=== PATIENT | male | born 1965 | race Caucasian/White ===

== ENCOUNTER 2016-09-24 12:31 | Inpatient (IN) | payer OTHER ==
[~2016-09-24] VITALS: Ht 177.8 cm; Wt 91.2 kg
--- NOTE | 2016-09-24 13:13 | DIAGNOSTIC IMAGING REPORT ---
PROCEDURE: XR CHEST 1 VIEW INDICATION: SHORTNESS OF BREATH, initial encounter TECHNIQUE: Portable AP view 01:04 p.m. COMPARISON: Chest x-ray 02/19/2016 FINDINGS: Diffuse left lung infiltrate. Heart and mediastinum are normal. Thorax is normal. IMPRESSION: 1. Large left-sided pneumonia
--- NOTE | 2016-09-24 13:54 | ED ORDER SUMMARY ---
..... 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 (Continuous) (12:56 09/24/2016 PHakchinson DO) (13:00 KWilliams R.N.) UA-Culture if indicated Urgent (12:09/24/2016 PHakchinson DO) (Ack 13:06 LTapper) (13:32 KWilliams R.N.) Cardiac Panel Stat (12:09/24/2016 PHakchinson DO) (13:00 KWilliams R.N.) BNP Urgent (12:09/24/2016 PHakchinson DO) (13:00 KWilliams R.N.) D-Dimer Urgent (12:57 09/24/2016 PHakchinson DO) (13:00 KWilliams R.N.) Amylase Urgent (12:09/24/2016 PHakchinson DO) (13:00 KWilliams R.N.) PT with INR Urgent (12:57 09/24/2016 PHutchinson DO) (13:00 KWilliams R.N.) TSH Urgent (12:09/24/2016 PHakchinson DO) (13:00 KWilliams R.N.) ESR Urgent (12:57 09/24/2016 PHakchinson DO) (13:00 KWilliams R.N.) Urine Drug Screen Urgent (12:57 [facility]24/2016 [facility] (Ack 13:06 LTapper) (13:32 KWilliams R.N.) Oxygen (2 L/min) (NC) (12:57 09/24/2016 PHakchinson DO) (13:03 KWilliams R.N.) (13:06 DMaziarka R.N.) Pulse oximeter (12:57 09/24/2016 [facility]) (13:00 KWilliams R.N.) EKG - ER Stat (12:57 09/24/2016 [facility]) (13:00 KWilliams R.N.) Vitals (12:57 09/24/2016 [facility] DO) (13:00 KWilliams R.N.) POC Glucose (12:57 09/24/2016 [facility] ) (13:00 KWilliams R.N.) Lactate, Serum Urgent (12:58 09/24/2016 [facility]) (Ack 13:06 LTapper) (13:15 SRoberts R.N.) PCT (Procalcitonin) Urgent (12:58 09/24/2016 [facility] ) (13:01 KWilliams R.N.) Blood Culture (No) (N/A) Urgent (12:59 09/24/2016 [facility]) (Ack 13:06 LTapper) (13:15 SRoberts R.N.) Rapid Influenza Screen (Nasal Pharyngeal) (HR ASSISTANT swab) Urgent (13:00 09/24/2016 [facility]) (Ack 13:06 LTapper) (13:15 SRoberts R.N.) ABG (G) Urgent (13:53 09/24/2016 [facility] ) (Ack 14:01 LTapper) (14:14 KWilliams R.N.) RT Evaluation Stat (13:53 09/24/2016 [facility] ) (Ack 14:01 LTapper) (14:13 KWilliams R.N.) Singh Catheter (14:19 09/24/2016 [facility]) (14:59 SRoberts R.N.) CTA Thorax w Cont (No) (BUN and Cr normal) (high d-dimer; high Aa gradient; pneumonia; hypoxia) Urgent (14:38 09/24/2016 [facility]) (Ack 14:42 LTapper) (14:59 SRoberts R.N.) MEDICATION ORDERS: Albuterol Neb Tx 1 unit dose (NOW, HHN) (13:53 09/24/2016 [facility]) (14:14 Lc R.N.) Lovenox Subcut 40 mg (NOW) (14:40 09/24/2016 [facility]) (Ack 15:00 Maria Luisats R.N.) (15:20 SRoberts R.N.) Acetaminophen PO 1,000 mg (NOW) (15:33 09/24/2016 [facility]) (15:37 SRoberts R.N.) IV FLUIDS: IV NS : initial bolus 1000 mL (1000 mL/hr), then 500 mL/hr for X2 (NOW) (12:56 09/24/2016 [facility]) (13:05 Kimberly R.N.) Azithromycin IV 500 mg/250 mL (NOW) (13:02 09/24/2016 [facility]) (14:11 Halimaams R.N.) Ceftriaxone IV 2 gm/50mL (NOW) (13:03 09/24/2016 [facility]) (13:29 Halimaams R.N.) ORDER SHEET NOTES: [Electronically signed by Camryn Gomez R.N. (15:41 09/24/2016)] [Electronically signed by Dayton Dickey DO (16:04 09/24/2016)] [Electronically locked/signed by Camryn Gomez R.N. (15:41 09/24/2016)]
--- NOTE | 2016-09-24 13:54 | ED ORDER SUMMARY ---
..... 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) (12:56 09/24/2016 PHdechinson DO) (13:00 KWilliams R.N.) UA-Culture if indicated Urgent (12:09/24/2016 PHdechinson DO) (Ack 13:06 LTapper) (13:32 KWilliams R.N.) Cardiac Panel Stat (12:09/24/2016 PHdechinson DO) (13:00 KWilliams R.N.) BNP Urgent (12:09/24/2016 PHdechinson DO) (13:00 KWilliams R.N.) D-Dimer Urgent (12:57 09/24/2016 PHdechinson DO) (13:00 KWilliams R.N.) Amylase Urgent (12:09/24/2016 PHdechinson DO) (13:00 KWilliams R.N.) PT with INR Urgent (12:57 09/24/2016 PHutchinson DO) (13:00 KWilliams R.N.) TSH Urgent (12:09/24/2016 PHdechinson DO) (13:00 KWilliams R.N.) ESR Urgent (12:57 09/24/2016 PHdechinson DO) (13:00 KWilliams R.N.) Urine Drug Screen Urgent (12:57 09/24/2016 [email or web address] DO) (Ack 13:06 LTapper) (13:32 KWilliams R.N.) Oxygen (2 L/min) (NC) (12:57 09/24/2016 PHdechinson DO) (13:03 KWilliams R.N.) (13:06 DMaziarka R.N.) Pulse oximeter (12:57 09/24/2016 [facility]) (13:00 KWilliams R.N.) EKG - ER Stat (12:57 09/24/2016 [facility]) (13:00 KWilliams R.N.) Vitals (12:57 09/24/2016 [facility] DO) (13:00 KWilliams R.N.) POC Glucose (12:57 09/24/2016 [facility] ) (13:00 KWilliams R.N.) Lactate, Serum Urgent (12:58 09/24/2016 [facility]) (Ack 13:06 LTapper) (13:15 SRoberts R.N.) PCT (Procalcitonin) Urgent (12:58 09/24/2016 [facility] ) (13:01 KWilliams R.N.) Blood Culture (No) (N/A) Urgent (12:59 09/24/2016 [facility]) (Ack 13:06 LTapper) (13:15 SRoberts R.N.) Rapid Influenza Screen (Nasal Pharyngeal) (MAIL PROCESSING MACHINE OPERATOR swab) Urgent (13:00 09/24/2016 [facility]) (Ack 13:06 LTapper) (13:15 SRoberts R.N.) ABG (G) Urgent (13:53 09/24/2016 [facility] ) (Ack 14:01 LTapper) (14:14 KWilliams R.N.) RT Evaluation Stat (13:53 09/24/2016 [facility] ) (Ack 14:01 LTapper) (14:13 KWilliams R.N.) Singh Catheter (14:19 09/24/2016 [facility]) (14:59 SRoberts R.N.) CTA Thorax w Cont (No) (BUN and Cr normal) (high d-dimer; high Aa gradient; pneumonia; hypoxia) Urgent (14:38 09/24/2016 [facility]) (Ack 14:42 LTapper) (14:59 SRoberts R.N.) MEDICATION ORDERS: Albuterol Neb Tx 1 unit dose (NOW, HHN) (13:53 09/24/2016 [facility]) (14:14 Lc R.N.) Lovenox Subcut 40 mg (NOW) (14:40 09/24/2016 [facility]) (Ack 15:00 Maria Luisats R.N.) (15:20 SRoberts R.N.) Acetaminophen PO 1,000 mg (NOW) (15:33 09/24/2016 [facility]) (15:37 SRoberts R.N.) IV FLUIDS: IV NS : initial bolus 1000 mL (1000 mL/hr), then 500 mL/hr for X2 (NOW) (12:56 09/24/2016 [facility]) (13:05 Kimberly R.N.) Azithromycin IV 500 mg/250 mL (NOW) (13:02 09/24/2016 [facility]) (14:11 Halimaams R.N.) Ceftriaxone IV 2 gm/50mL (NOW) (13:03 09/24/2016 [facility]) (13:29 Halimaams R.N.) ORDER SHEET NOTES: [Electronically signed by Camryn Gomez R.N. (15:41 09/24/2016)] [Electronically signed by Dayton Dickey DO (16:04 09/24/2016)] [Electronically locked/signed by Camryn Gomez R.N. (15:41 09/24/2016)]
--- NOTE | 2016-09-24 13:54 | ED NURSING NOTES ---
Clinical Report - Nurses [facility] [address] [place] [address] 09/24/2016 12:33 Patient: MARCO A BECK TRIAGE Triage time 1245. Acuity: LEVEL 2. Chief Complaint: IMPAIRED SPEECH and ACTING DIFFERENTLY and DISORIENTED. Alert. No acute distress. SEPSIS SCREEN: Sepsis Screen. Infection suspected/documented. Temperature greater than 38.3 degrees C (101 degrees F), heart rate greater than 90 and respiratory rate greater than 20. Glucose not greater than 120 (with no history of diabetes). MYA COMA SCORE: [place] Coma Scale: 14- eyes open spontaneously (4); best verbal response- disoriented (4); best motor response- obeys commands (6). --12:57 Darren Ruiz R.N. 12:48 09/24/16. BP: 142/72. HR: 150. RR: 39. O2 saturation: 94% on room air. Temp: 103.3 F (oral). Pain level now 0/10. --12:57 Darren Ruiz R.N. Weight: 88.4 kg estimated. Height/Length: 70 inches Per Patient. BMI: 28. --12:49 Darren Ruiz R.N. Medications PredniSONE Oral. --12:55 Darren Ruiz R.N. Aspirin Oral (Tablet 81 mg) 1 tablet, daily. --12:55 Darren Ruiz R.N. Folic Acid Oral. --12:55 Darren Ruiz R.N. Methotrexate Oral 7.5 mg, weekly. --12:55 Darren Ruiz R.N. Actemra Subcutaneous. --12:56 Darren Ruiz R.N. Allergies No Known Drug Allergy. --12:55 Darren Ruiz R.N. History Primary physician (no pcp). ( Pt c/o feeling delirious. 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 at bedside states he was last at his baseline on .). This started last night. Patient was last known well (). Treatment YARD CONDUCTOR: None. SOCIAL HX: Heavy tobacco smoker (cigarette)- less than 1 pack per day. Alcohol use; consumes five beers a week. No drug use. FALL RISK ASSESSMENT: Fall risk assessment completed. No fall risk identified. NUTRITIONAL RISK ASSESSMENT: The nutritional risk assessment revealed no deficiencies. FUNCTIONAL ASSESSMENT: Functional assessment: no impairments noted. LEARNING NEEDS ASSESSMENT: The learning needs assessment revealed no barriers. SKIN INTEGRITY ASSESSMENT: Skin integrity risk assessment completed. No skin integrity risk identified. --12:57 Darren Ruiz R.N. SOCIAL HX: ( Code stroke was called at 1247 due to slurred speech and confusion, prior to obtaining temp and VS). --13:00 Darren Ruiz R.N. PROBLEMS: Rheumatoid Arthritis. --12:56 Darren Ruiz R.N. ADDITIONAL SURGERIES: no known surgeries. Interventions ID band on patient. To treatment room. --12:57 Darren Ruiz R.N. PHYSICAL ASSESSMENT 12:59 09/24/16. To room via wheelchair. Baseline functional status: usually alert, oriented x4 and cooperative. Motor response: usually steady gait GENERAL / NEURO / PSYCH: Appears in no acute distress. The patient is disoriented to situation. Slurred speech. No motor deficit. ( difficulty following commands.). HEENT: No facial asymmetry noted. RESPIRATORY: Respirations not labored. ( tachypnea). CVS: Cardiac rhythm: sinus tachycardia. Capillary refill less than 2 seconds. SKIN: Skin is intact, warm and dry. --12:59 Darren Ruiz R.N. NURSING PROGRESS NOTES The plan of care for this patient has been created. stave log cut off saw operator, pulse oximeter and NIBP monitor placed on patient. Patient gowned. Head of bed elevated. Call light placed in reach. Bed placed in lowest position. Brakes of bed on. Patient ready for evaluation- chart flagged. --12:59 Darren Ruiz R.N. 12:53 09/24/2016 Site #1 started via IV in the right hand with an 18g angiocath, with aseptic technique and good blood return; one attempt. Blood drawn: rainbow set. Sent to the lab. Saline lock flushed with 10 mL saline. --13:03 Anjelica Brown R.N. 12:55 09/24/2016 Started bag #1 1000 mL IV Fluids IV NS (Saline); bolus of 1000 mL wide open via site #1 via IV pump. Allergies verified and confirmed 5 rights. IV patency established. IV site checked: no pain, redness, or swelling. IV flushed thoroughly pre- and post-medication administration. --13:05 Anjelica Brown R.N. 12:58 09/24/2016 Site #2 started via IV in the right hand with an 18g angiocath, with aseptic technique and good blood return; one attempt. --13:04 Anjelica Brown R.N. 13:26 09/24/2016 Started 2 gm of Ceftriaxone IVPB in bag #1 50 mL; at 150 mL/hr over 20 minute(s) via site #1 via IV pump. Allergies verified and confirmed 5 rights. IV patency established. IV site checked: no pain, redness, or swelling. IV flushed thoroughly pre- and post-medication administration. Completed per protocol. --13:29 Darren Ruiz R.N. 12:50. Finger stick glucose: 107; performed by tech; result shown to the ED physician and RN. --13:34 Darren Ruiz R.N. Patient ID band checked for patient name and birthdate: patient confirmed. Instructions provided to collect clean catch urine and patient verbalized understanding. Clean catch urine collected with return of nata-colored cloudy urine, sediment noted; sample sent to lab for urinalysis and drug screen. Specimen labeled in the presence of the patient. --13:34 Darren Ruiz R.N. Critical value received by KRIS Beltran. 16.06 d-dimer. Critical value read back. Verified lab result and patient ID. ED physician notifed of critical value. Orders were not received. ED physician notified. --13:38 Darren Ruiz R.N. 13:38 09/24/16. BP: 127/95. HR: 144. RR: 43. O2 saturation: 96% on nasal cannula at 2 liters/minute. Pain level now 0/10. --13:41 Darren Ruiz R.N. 13:59 09/24/16. BP: 132/60. HR: 145. RR: 38. O2 saturation: 96%. Temp: 103.2 F. Pain level now 0/10. --13:59 Darren Ruiz R.N. 13:48 09/24/2016 Ceftriaxone IVPB Discontinued: bag #1 infused. Total amount infused: 50 mL. IV patency established. IV site checked: no pain, redness, or swelling. IV flushed thoroughly. --14:13 Darren Ruiz R.N. 13:55 09/24/2016 Started 500 mg of Azithromycin IVPB in bag #1 250 mL; at 255 mL/hr over 1 hour(s) via site #2 via IV pump. Allergies verified and confirmed 5 rights. IV patency established. IV site checked: no pain, redness, or swelling. IV flushed thoroughly pre- and post-medication administration. --14:11 Darren Ruiz R.N. 14:03 09/24/2016 Started bag #2 1000 mL IV Fluids IV NS (Saline); at 999 mL/hr over 1 hour(s) via site #1 via IV pump. Allergies verified and confirmed 5 rights. IV patency established. IV site checked: no pain, redness, or swelling. IV flushed thoroughly pre- and post-medication administration. Completed per protocol. --14:13 Darren Ruiz R.N. 14:09 09/24/2016 Albuterol Neb TX Nebulizer 1 unit dose given. Given by the respiratory therapist. Allergies verified and confirmed 5 rights. --14:14 Darren Ruiz R.N. 14:30 09/24/2016 IV Fluids IV NS Bag Change: bag #1 infused. Total amount infused: 1000. STARTED bag #3 (1000 mL) at 1000 mL/hr via IV pump. Confirmed 5 rights. IV patency established. IV site checked: no pain, redness, or swelling. IV flushed thoroughly. --14:58 Camryn Gomez R.N. 14:58 09/24/2016 IV Fluids IV NS Discontinued: bag #3 discontinued. Total amount infused: 600 mL. IV patency established. IV site checked: no pain, redness, or swelling. IV flushed thoroughly. --14:58 Camryn Gomez R.N. 14:59 09/24/2016 Azithromycin IVPB Discontinued: bag #1 infused. Total amount infused: 250 mL. IV patency established. IV site checked: no pain, redness, or swelling. IV flushed thoroughly. --14:59 Camryn Gomez R.N. 14 fr wiley catheter placed. Reason for indwelling catheter: requires prolonged immobilization. During procedure hand hygiene observed and sterile equipment and aseptic technique used. Return of 200 mL nata-colored cloudy urine; attached to bedside drainage bag positioned below the bladder and secured with tape. He tolerated procedure well. --15:04 Camryn Gomez R.N. 15:20 09/24/2016 Lovenox (Enoxaparin Sodium) Subcutaneous 40 mg given. Given in the right abdomen (split dose). Allergies verified and confirmed 5 rights. --15:20 Camryn Gomez R.N. 15:27 09/24/16. BP: 114/67. HR: 141. RR: 34. O2 saturation: 99% on nasal cannula at 2 liters/minute. Temp: 101.1 F. 13:57 09/24/16. BP: 132/60. HR: 145. RR: 38. O2 saturation: 96%. Temp: 103.2 F. Pain level now 0/10. 13:38 09/24/16. BP: 127/95. HR: 144. RR: 43. O2 saturation: 96% on nasal cannula at 2 liters/minute. Pain level now 0/10. 12:48 09/24/16. BP: 142/72. HR: 150. RR: 39. O2 saturation: 94% on room air. Temp: 103.3 F (oral). Pain level now 0/10. --15:28 Camryn Gomez R.N. 15:37 09/24/2016 Acetaminophen (APAP) PO 1000 mg given. Allergies verified and confirmed 5 rights. --15:37 Camryn Gomez R.N. Intake & Output TOTAL INTAKE: 2400 mL. IV fluids: 2200 mL. IVPB volume: 200 mL. TOTAL OUTPUT: 300 mL. Urine, with return of 300 mL nata-colored cloudy urine. --15:39 Camryn Gomez R.N. DISPOSITION / DISCHARGE Transported via stretcher by nurse. Report was given to a nurse via a phone call. All questions were answered. Report was acknowledged and care was transferred. (jerri Tinajero). Patient's personal items include: shoes, glasses and cell phone; items were transported with the patient. Collection of belongings was witnessed by 1 nurse. Medication list reviewed and validated. --15:31 Camryn Gomez R.N. 15:27 09/24/16. BP: 114/67. HR: 141. RR: 34. O2 saturation: 99% on nasal cannula at 2 liters/minute. Temp: 101.1 F. 13:57 09/24/16. BP: 132/60. HR: 145. RR: 38. O2 saturation: 96%. Temp: 103.2 F. Pain level now 0/10. 13:38 09/24/16. BP: 127/95. HR: 144. RR: 43. O2 saturation: 96% on nasal cannula at 2 liters/minute. Pain level now 0/10. 12:48 09/24/16. BP: 142/72. HR: 150. RR: 39. O2 saturation: 94% on room air. Temp: 103.3 F (oral). Pain level now 0/10. --15:31 Camryn Gomez R.N. Departure time: 15:31. --15:39 Camryn Gomez R.N. Locked/Released at 09/24/2016 15:41 by Camryn Gomez R.N.
--- NOTE | 2016-09-24 13:54 | ED CLINICAL REPORT ---
Clinical Report - Physicians/Mid Levels [facility] [address] [place] [address] 09/24/2016 12:33 Patient: MARCO A BECK Time Seen: 12:48. Arrived- By private vehicle. Historian- patient. HISTORY OF PRESENT ILLNESS Chief Complaint: FEVER, DYSPNEA, COUGH and WEAKNESS CONFUSION. At its maximum, severity described as severe. When seen in the E.D., severity described as severe. Modifying factors- worsened by movement and walking. Relieved by rest. This started yesterday and is still present. It was gradual in onset and has been waxing/waning. The patient has had fatigue and generalized weakness. (Pt has had URI symptoms and cough and fever for the past 2-3 days. He went to work yesterday and was reportedly only mildly ill until this am his noted him to be weak and confused.). Similar symptoms previously: None. Recent medical care: Not recently seen/assessed. REVIEW OF SYSTEMS The patient has had difficulty breathing, sinus drainage, nasal congestion, fever and a cough. No sore throat, chest pain, abdominal pain, nausea or vomiting. No diarrhea, black stools, bloody stools, difficulty with urination or skin rash. No back pain, calf pain, headache or blackouts. The patient has had moderate difficulty with ambulation. It has been associated with weakness in both legs. All systems otherwise negative, except as recorded above. PAST HISTORY Chest wall pain due to RA with chronic d-dimer elevation (and neg CT pulm angio 01/2016). Rheumatoid arthritis. Surgeries: Colonoscopy. Endoscopy. SOCIAL HISTORY Smoker- current status unknown. Regular alcohol use; consumes about four beers a week. No drug use. Is a local resident. ADDITIONAL NOTES The nursing notes have been reviewed. PHYSICAL EXAM Vital Signs: 09/24/2016 12:48 BP: 142/72. HR: 150. RR: 39. O2 saturation: 94%. Temp: 103.3 F. Appearance: Alert. Patient in moderate distress. (splinting respirations). Eyes: Eyes normal inspection. No scleral icterus or pale conjunctivae. ENT: Dry mucous membranes present. No pharyngeal erythema or tonsillar exudate. Neck: Normal inspection. Neck supple. CVS: Tachycardia. Heart sounds normal. Pulses normal. Respiratory: Moderate respiratory distress with tachypnea and decreased mental status. Splinting present. Moderately decreased air movement in the left lung. Wheezing present. Rhonchi present in the left lung base, mid-lung and upper lung. Rales in the left lung base, mid-lung and upper lung. No crepitus. Abdomen: No visible injury. Soft and nontender. No rebound tenderness or guarding. Back: Normal inspection. Skin: Skin warm and dry. Normal skin color. Normal skin turgor. Extremities: Extremities exhibit normal ROM. No lower extremity edema. Neuro: Oriented X 3. No motor deficit. LABS, X-RAYS, AND EKG EKG: EKG time: (12:54). Regular narrow-complex tachycardia (ventricular rate 150). Sinus tachycardia. Normal P waves. Normal ALEXANDER. Nondiagnostic Q waves in lead V2. Non-specific ST segment / T wave abnormalities. The study has been interpreted contemporaneously by me. The EKG appears to be a good tracing. Rhythm Strip #1: Sinus tachycardia (ventricular rate 150). Chest X-ray: Infiltrate in the left upper lobe and left lower lobe. Consistent with pneumonia. Mediastinum normal. Great vessels normal. Views: AP (portable). Technique: good. The X-rays were interpreted contemporaneously by me. CTA Pulmonary Arteries: IMPRESSION: 1. No evidence of pulmonary emboli 2. Pneumonia involving the majority of the lingula and left upper lobe with small left pleural effusion. No evidence of necrotizing pneumonia. 3. Small hiatal hernia. The CTA was performed with contrast. The study was independently viewed by me, interpreted by the radiologist and discussed with the radiologist. Laboratory Tests: UA-Culture if indicated: (MARINA: 09/24/2016 13:30) ( MsgRcvd 09/24/2016 13:51) Final results Test Result Flag Units (Reference) URINE COLOR CRISTINA URINE APPEARANCE SL CLOUDY URINE GLUCOSE NEGATIVE (NEGATIVE) URINE BILIRUBIN NEGATIVE (NEGATIVE) URINE KETONE NEGATIVE (NEGATIVE) URINE SPECIFIC GRAVITY >= 1.030 (1.010-1.030) URINE PH 5.5 (5.0-8.0) URINE PROTEIN 2+ (NEGATIVE) URINE UROBILINOGEN 1.0 EU/dL (0.2-1.0) URINE NITRITE NEGATIVE (NEGATIVE) URINE BLOOD 3+ (NEGATIVE) URINE LEUK ESTERASE NEGATIVE (NEGATIVE) URINE RBC >100 rbc/hpf (0-1) URINE WBC 0-1 wbc/hpf (0-1) URINE EPITHELIAL CELLS RARE EPI/hpf (0-5) URINE BACTERIA MODERATE (2+ TO 3+) (NONE SEEN) URINE COMMENT CULTURE INDICATED 3-5 RBC CASTS1-3 GRANULAR AND HYALINE CASTSURINE CULTURES ARE SET-UP BASED ON THE FOLLOWING CRITERIA:POSITIVE NITRITEPOSITIVE LEUKOCYTE ESTERASEGREATER THAN 10 WHITE BLOOD CELLSMODERATE (2+) OR GREATER BACTERIA CBC w Diff: (MARINA: 09/24/2016 12:50) ( [facility] 09/24[place] 13:29) Final results Test Result Flag Units (Reference) WHITE BLOOD COUNT 14.6 H K/uL (4.5-11.5) RED BLOOD COUNT 4.64 M/uL (4.50-5.90) HEMOGLOBIN 14.6 gm/dL (13.5-17.5) HEMATOCRIT 43.2 % (41.0-53.0) MEAN CELL VOLUME 93 fL (80-100) MEAN CORPUSCULAR HGB 32 pg (26-34) MEAN CORPUSCULAR HGB CONC 34 g/dL (31-37) RED CELL DISTRIBUTION WIDTH 17.5 H % (11.6-14.8) PLATELET COUNT 219 K/uL (150-400) SED RATE WESTERGREN 75 H mm/hr (0-20) POLY % 82 H % (50-75) BAND % 13 H % (0-8) LYMPH 4 L % (25-40) MONO 0 L % (3-14) EOSINOPHIL % 0 % (0-4) BASOPHIL % 0 % (0-2) METAMYELOCYTE % 1 % (0-1) MYELOCYTE 0 % (0-1) OTHER CELL TYPE 0 ANISOCYTOSIS 1+ PT with INR: (MARINA: 09/24/2016 12:50) ( [facility] 09/24/2016 13:37) Final results Test Result Flag Units (Reference) INR 1.1 (0.8-1.2) Low Intensity Therapy: INR 1.5-2.0 PT range 18.5-23.1Mod.Intensity Therapy: INR 2.0-3.0 PT range 23.1-31.5High Intensity Therapy: INR 2.5-3.5 PT range 27.4-35.5High Intensity Therapy 2: INR 3.0-4.0 PT range 31.5-39.3 D-DIMER QUANTITATIVE 16.06 *H ug/mLFEU (0.27-0.52) CRITICAL RESULTS CALLEDCalled to [employer] 09/24/16 [id number] 2 patient identifiers used? YWas the result read back? YThe primary value of this quantitative assay relates toits negative predictive value (i.e. exclusion) of pulmonaryembolism/deep vein thrombosis/DIC.Elevated levels of d-dimer may also occur with:, age, cancer, inflammation, liver disease,post-op, infection, hematoma, coronary disease, peripheralarteriopathy, bleeding disorders and thrombolytic treatment.Results should be correlated with other clinical andradiological data.Testing Methodology: Latex Immunoassay Lactate, Serum: (MARINA: 09/24/2016 13:16) ( WagRcvd 09/24/2016 14:00) Final results Test Result Flag Units (Reference) LACTIC ACID 1.6 mmol/L (0.4-2.0) [id number]: (MARINA: 09/24/2016 12:50) ( MsgRcvd 09/24/2016 13:40) Final results Test Result Flag Units (Reference) PROCALCITONIN 62.6 H ng/mL (0-0.5) PCT Concentration: Interpretation : Risk/option for action PCT <=0.5 ng/mL : Systemic : Low risk forinfection(sepsis): progression to severeis not likely. : systemic infection.Local bacterial : CAUTION-PCT levelsinfection is : below 0.5 ng/mL do notpossible. : exclude an infection,because localizedinfections (withoutsystemic signs) may beassociated with suchlow levels. If PCT ismeasured very earlyafter a bacterialchallenge (usually <6hours), these valuesmay still be low. Inthis case PCT shouldbe re-assessed 6-24hours later. PCT >0.5 and : Systemic infection: Moderate risk for<= 2 ng/mL : (sepsis) is : progression to severepossible, but : systemic infection.other conditions : The patient should beare known to : closely monitoredelevate PCT. : both clinically andby re-assessing PCTwithin 6-24 hours. PCT > 2 ng/mL : Systemic infection: High risk for(sepsis) is likely: progression to severeunless other : systemic infection.causes are known. : PCT >= 10 ng/mL : Important systemic: High likelihood ofinflammatory : severe sepsis orresponse, almost : septic shock.exclusively due to:severe bacterial :sepsis or septic :shock. : Urine Drug Screen: (MARINA: 09/24/2016 13:30) ( MsgRcvd 09/24/2016 14:01) Final results Test Result Flag Units (Reference) AMPHETAMINE/METHAMPHETAMINE NEGATIVE (NEGATIVE) BARBITURATE NEGATIVE (NEGATIVE) BENZODIAZEPINE NEGATIVE (NEGATIVE) CANNABINOID POSITIVE H (NEGATIVE) COCAINE NEGATIVE (NEGATIVE) ECSTASY NEGATIVE (NEGATIVE) METHADONE NEGATIVE (NEGATIVE) OPIATE NEGATIVE (NEGATIVE) The urine drug screen is a qualitative screening test fordrug overdose and abuse. All screen results should beconsidered as presumptive.Drugs screened for are as follows:BenzodiazepinesCocaineAmphetamines/MetamphetaminesTHC (Tetrahydrocannabinol)OpiatesBarbituratesEcstasyMethadonePositive results are unconfirmed. For confirmation, notifythe lab for the specimen to be sent to the reference lab.All confirmations must be performed by a differentmethodology.The ingestion of natural herbal and plant productscontaining Ephedra/Ephedra metabolites can produce in urineone or more substances capable of cross reacting withamphetamine/methamphetamine immunoassays. These testsprovide a preliminary result only. A more specificalternative chemical method must be used to obtain aconfirmed analytical result. BNP: (MARINA: 09/24/2016 12:50) ( WagRcvd 09/24/2016 13:29) Final results Test Result Flag Units (Reference) B-TYPE NATRIURETIC PEPTIDE 431 H pg/ml (5-100) CHEM 13 PANEL: (MARINA: 09/24/2016 12:50) ( WagRcvd 09/24/2016 13:22) Final results Test Result Flag Units (Reference) GLUCOSE 120 H mg/dL (70-110) BUN 18 mg/dL (7-18) CREATININE 1.3 mg/dL (0.6-1.3) Estimated GFR >60 mL/min Estimated GFR- >60 mL/min Note: Persistent reduction over 3 months in eGFR<60 mL/min/1.73 m2 defines CKD. Patients with eGFR values>=60 mL/min/1.73 m2 may also have CKD if evidence ofpersistent proteinuria. Additional information may be foundat www.kidney.org. SODIUM 130 L mmol/L (136-145) POTASSIUM 4.1 mmol/L (3.5-5.1) CHLORIDE 95 L mmol/L (98-107) CARBON DIOXIDE 21 mmol/L (21-32) CALCIUM 8.2 L mg/dL (8.5-10.1) TOTAL PROTEIN 6.9 g/dL (6.4-8.2) ALBUMIN 2.3 L g/dL (3.3-5.0) BILIRUBIN, TOTAL 1.1 H mg/dL (0.0-1.0) ALKALINE PHOSPHATASE 40 L U/L (46-116) AST (SGOT) 45 H U/L (15-37) ALT (SGPT) 25 U/L (12-78) CPK 201 U/L (24-260) MAGNESIUM 1.9 mg/dL (1.8-2.4) TROPONIN I 0.10 ng/mL (0.00-1.5) TROPONIN REFERENCE RANGE:<0.1 NEGATIVE0.1-1.5 INDETERMINANT>1.5 POSITIVE ABG: (MARINA: 09/24/2016 13:53) ( MsgRcvd 09/24/2016 14:27) Final results Test Result Flag Units (Reference) FIO2 0.28 L % (20-101) ABG MODE OF DELIVERY NC MODIFIED BARRY TEST POSITIVE? YES LITERS PER MIN. 2 L/MIN (0-20) ABG PATIENT RESP RATE 40 /MIN ARTERIAL BLOOD GAS SITE RR ARTERIAL BLOOD GAS pH 7.54 H (7.35-7.45) ABG PCO2 23.9 L mmHg (35-45) ABG PO2 61.8 L mmHg (80.0-100.0) ABG BASE EXCESS -1.9 H mmol/L (-6.0--6.0) ABG HCO3 20.2 mmol/L (20.0-26.0) ABG TCO2 20.9 L mmol/L (24.0-30.0) ABG [id number] 113.5 H mmHg (7.0-14.0) *NOTE: Normal rangeis based on aFIO2 of 21% ABG SAT O2 94.5 L % (95.1-100.0) ABG TOTAL HEMOGLOBIN 12.6 L g/dL (14.0-18.0) ABG O2 HEMOGLOBIN 92.8 L % (95.0-100.0) ABG CARBOXYHEMOGLOBIN 1.6 H % (0.5-1.5) ABG METHEMOGLOBIN 0.2 L % (0.4-1.5) ABG RHEMOGLOBIN 5.4 % Rapid Influenza Screen: (MARINA: 09/24/2016 13:06) ( MsgRcvd 09/24/2016 14:14) Final results 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 . Microbiology: Blood culture x2 ordered. Pulse Oximetry: 09/24/2016 12:48 O2 saturation: 94%. (FIO2-2 liter/min nasal cannula). Interpretation: hypoxemia. PROGRESS AND PROCEDURES Course of Care: Normal Saline 2.6 liters (30ml/kg) IVPB given. Azithromycin 500mg IVPB given. Ceftriaxone 2 gm IVP given. Physical exam findings are improved. Symptoms better. Pt with sepsis and pneumonia, but no clear severe sepsis criteria. Pt with markedly increased resp rate, elevated d-dimer, hypoxia, pneumonia, smoking history and pleuritic chest pain. CT pulm angio did not reveal PE or indication of cancer (but large pneumonia obstructs view). Critical care performed (70 minutes). Time is exclusive of separately billable procedures. Time includes: direct patient care, patient reassessment, coordination of patient care, interpretation of data (laboratory data, pulse oximetry and chest xrays), review of patient's medical records, medical consultation, family consultation regarding treatment decisions and documentation of patient care. Discussed case with hospitalist, (Fer call placed 14:14 call returned 14:58). Reviewed test results. Agreed upon treatment plan. Health care provider will see patient in hospital. Patient/family counseled. Old ED records reviewed. Admission orders written. Disposition: Admitted to the Critical Care Unit. Condition: serious and guarded. CLINICAL IMPRESSION Microscopic hematuria. Acute mild systolic, left ventricular congestive heart failure. Chest wall pain .12 lead EKG performed. Bacterial pneumonia with hypoxemia and sepsis. Vital signs recorded and reviewed; empiric antibiotics given in the ED. Sinus tachycardia. Moderate leukocytosis with bandemia. (Electronically signed by Dayton Dickey DO 09/24/2016 16:04)
--- NOTE | 2016-09-24 15:37 | DIAGNOSTIC IMAGING REPORT ---
PROCEDURE: CTA THORAX WITH CONTRAST INDICATION: SHORTNESS OF BREATH, initial encounter TECHNIQUE: 84 ml of Isovue 370 was injected intravenously and axial images were obtained of the entire thorax with 3D sagittal and coronal MIP reconstructions. COMPARISON: Chest x-ray 09/24/2016 and CTA chest 02/19/2016 FINDINGS: No evidence of pulmonary emboli. Dense consolidation involving the majority of the lingula and left upper lobe as well as the left perihilar area. Minor left basilar atelectasis. Small left pleural effusion with mild pretracheal, subcarinal and left hilar adenopathy. Normal thoracic aorta. Heart size is normal. Small pericardial effusion. Small hiatal hernia. Mild degenerative changes of the spine. IMPRESSION: 1. No evidence of pulmonary emboli 2. Pneumonia involving the majority of the lingula and left upper lobe with small left pleural effusion. No evidence of necrotizing pneumonia. 3. Small hiatal hernia 4. Results discussed with Dr. Dickey
--- NOTE | 2016-09-24 16:04 | ED MAR SUMMARY ---
..... Medication Administration Record [facility] [address] [place] [address] Patient: MARCO A BECK Visit ID: [id number] 50y, M Weight: 88.4 kg Height/Length: 70 in BMI: 28 ALLERGIES: No Known Drug Allergy Start 12:55 09/24/2016 Anjelica Brown R.N., Stop 14:58 09/24/2016 Camryn Gomez R.N. Medication Administered: IV NS (SALINE), Dose: IV Fluids, Bolus: 1000 mL wide open, Dispensed: 1000 mL bag, Site: #1 right hand. Medication Ordered: IV NS : initial bolus 1000 mL (1000 mL/hr), then 500 mL/hr for X2 (NOW). Start 13:26 09/24/2016 Darren Ruiz R.N., Stop 13:48 09/24/2016 Darren Ruiz R.N. Medication Administered: CEFTRIAXONE [IVPB], Dose: 2 gm IVPB over 20 minute(s), Rate: 150 mL/hr, Dispensed: 50 mL bag, Site: #1 right hand. Medication Ordered: Ceftriaxone IV 2 gm/50mL (NOW). Start 13:55 09/24/2016 Darren Ruiz R.N., Stop 14:59 09/24/2016 Camryn Gomez R.N. Medication Administered: AZITHROMYCIN [IVPB], Dose: 500 mg IVPB over 1 hour(s), Rate: 255 mL/hr, Dispensed: 250 mL bag, Site: #2 right hand. Medication Ordered: Azithromycin IV 500 mg/250 mL (NOW). Start 14:03 09/24/2016 Darren Ruiz R.N. Medication Administered: IV NS (SALINE), Dose: IV Fluids over 1 hour(s), Rate: 999 mL/hr, Dispensed: 1000 mL bag, Site: #1 right hand. Medication Ordered: IV NS : initial bolus 1000 mL (1000 mL/hr), then 500 mL/hr for X2 (NOW). Given 14:09 09/24/2016 Darren Ruiz R.N. Medication Administered: ALBUTEROL [NEB TX], Dose: 1 unit dose Nebulizer Neb TX. Medication Ordered: Albuterol Neb Tx 1 unit dose (NOW, [facility]). Given 15:20 09/24/2016 Camryn Gomez R.N. Medication Administered: LOVENOX [SUBCUTANEOUS] (ENOXAPARIN SODIUM), Dose: 40 mg Subcutaneous. Medication Ordered: Lovenox Subcut 40 mg (NOW). Given 15:37 09/24/2016 Camryn Gomez R.N. Medication Administered: ACETAMINOPHEN [PO] (APAP), Dose: 1000 mg PO. Medication Ordered: Acetaminophen PO 1,000 mg (NOW).
--- NOTE | 2016-09-24 16:04 | ED MED RECONCILIATION SUMMARY ---
Patient: MARCO A BECK Medication Reconciliation Report [facility] VisitID: [id number] [address] [place] [address] 50y, M Registration Date/Time: 09/24/2016 Weight: 88.4 kg Height/Length: 70 in. BMI: 28.0 ALLERGIES: No Known Drug Allergy The patient's Home Medications are listed below: THE FOLLOWING MEDICATIONS NEED TO BE RECONCILED: Actemra Subcutaneous Aspirin Oral (81 mg) 1 tablet, daily Folic Acid Oral Methotrexate Oral 7.5 mg, weekly PredniSONE Oral The source(s) of the original Home Medication information: Not obtained. The following Medications were given to the patient in the Emergency Department: IV NS IV Fluids bolus 1000 mL wide open, administered: 09/24/2016 12:55:00 PM Ceftriaxone [IVPB] IVPB bolus 0, then 2 gm 150 mL/hr, administered: 09/24/2016 1:26:00 PM Azithromycin [IVPB] IVPB bolus 0, then 500 mg 255 mL/hr, administered: 09/24/2016 1:55:00 PM IV NS IV Fluids bolus 0, then 999 mL/hr, administered: 09/24/2016 2:03:00 PM Albuterol [Neb Tx] Neb TX 1 unit dose, administered: 09/24/2016 2:09:00 PM Lovenox [Subcutaneous] Subcutaneous 40 mg, administered: 09/24/2016 3:20:00 PM Acetaminophen [PO] PO 1000 mg, administered: 09/24/2016 3:37:00 PM The following Medications were prescribed to the patient: None.
--- NOTE | 2016-09-24 16:04 | ED MAR SUMMARY ---
..... Medication Administration Record [facility] [address] [place] [address] Patient: MARCO A BECK Visit ID: [id number] 50y, M Weight: 88.4 kg Height/Length: 70 in BMI: 28 ALLERGIES: No Known Drug Allergy Start 12:55 09/24/2016 Anjelica Brown R.N., Stop 14:58 09/24/2016 Camryn Gomez R.N. Medication Administered: IV NS (SALINE), Dose: IV Fluids, Bolus: 1000 mL wide open, Dispensed: 1000 mL bag, Site: #1 right hand. Medication Ordered: IV NS : initial bolus 1000 mL (1000 mL/hr), then 500 mL/hr for X2 (NOW). Start 13:26 09/24/2016 Darren Ruiz R.N., Stop 13:48 09/24/2016 Darren Ruiz R.N. Medication Administered: CEFTRIAXONE [IVPB], Dose: 2 gm IVPB over 20 minute(s), Rate: 150 mL/hr, Dispensed: 50 mL bag, Site: #1 right hand. Medication Ordered: Ceftriaxone IV 2 gm/50mL (NOW). Start 13:55 09/24/2016 Darren Ruiz R.N., Stop 14:59 09/24/2016 Camryn Gomez R.N. Medication Administered: AZITHROMYCIN [IVPB], Dose: 500 mg IVPB over 1 hour(s), Rate: 255 mL/hr, Dispensed: 250 mL bag, Site: #2 right hand. Medication Ordered: Azithromycin IV 500 mg/250 mL (NOW). Start 14:03 09/24/2016 Darren Ruiz R.N. Medication Administered: IV NS (SALINE), Dose: IV Fluids over 1 hour(s), Rate: 999 mL/hr, Dispensed: 1000 mL bag, Site: #1 right hand. Medication Ordered: IV NS : initial bolus 1000 mL (1000 mL/hr), then 500 mL/hr for X2 (NOW). Given 14:09 09/24/2016 Darren Ruiz R.N. Medication Administered: ALBUTEROL [NEB TX], Dose: 1 unit dose Nebulizer Neb TX. Medication Ordered: Albuterol Neb Tx 1 unit dose (NOW, [facility]). Given 15:20 09/24/2016 Camryn Gomez R.N. Medication Administered: LOVENOX [SUBCUTANEOUS] (ENOXAPARIN SODIUM), Dose: 40 mg Subcutaneous. Medication Ordered: Lovenox Subcut 40 mg (NOW). Given 15:37 09/24/2016 Camryn Gomez R.N. Medication Administered: ACETAMINOPHEN [PO] (APAP), Dose: 1000 mg PO. Medication Ordered: Acetaminophen PO 1,000 mg (NOW).
--- NOTE | 2016-09-24 16:04 | ED DISCHARGE INSTRUCTIONS ---
Patient: MARCO A BECK General Instructions [facility] VisitID: [id number] [address] [place] [place] [address] 50y, M Registration Date/Time: 09/24/2016 Microscopic hematuria. Acute mild systolic, left ventricular congestive heart failure. Chest wall pain .12 lead EKG performed. Bacterial pneumonia with hypoxemia and sepsis. Vital signs recorded and reviewed; empiric antibiotics given in the ED. Sinus tachycardia. Moderate leukocytosis with bandemia. (Electronically signed by Dayton Dickey DO 09/24/2016 16:04)
--- NOTE | 2016-09-24 16:04 | ED MED RECONCILIATION SUMMARY ---
Patient: MARCO A BECK Medication Reconciliation Report [facility] VisitID: [id number] [address] [place] [address] 50y, M Registration Date/Time: 09/24/2016 Weight: 88.4 kg Height/Length: 70 in. BMI: 28.0 ALLERGIES: No Known Drug Allergy The patient's Home Medications are listed below: THE FOLLOWING MEDICATIONS NEED TO BE RECONCILED: Actemra Subcutaneous Aspirin Oral (81 mg) 1 tablet, daily Folic Acid Oral Methotrexate Oral 7.5 mg, weekly PredniSONE Oral The source(s) of the original Home Medication information: Not obtained. The following Medications were given to the patient in the Emergency Department: IV NS IV Fluids bolus 1000 mL wide open, administered: 09/24/2016 12:55:00 PM Ceftriaxone [IVPB] IVPB bolus 0, then 2 gm 150 mL/hr, administered: 09/24/2016 1:26:00 PM Azithromycin [IVPB] IVPB bolus 0, then 500 mg 255 mL/hr, administered: 09/24/2016 1:55:00 PM IV NS IV Fluids bolus 0, then 999 mL/hr, administered: 09/24/2016 2:03:00 PM Albuterol [Neb Tx] Neb TX 1 unit dose, administered: 09/24/2016 2:09:00 PM Lovenox [Subcutaneous] Subcutaneous 40 mg, administered: 09/24/2016 3:20:00 PM Acetaminophen [PO] PO 1000 mg, administered: 09/24/2016 3:37:00 PM The following Medications were prescribed to the patient: None.
--- NOTE | 2016-09-24 16:04 | ED DISCHARGE INSTRUCTIONS ---
Patient: MARCO A BECK General Instructions [facility] VisitID: [id number] [address] [place] [address] 50y, M Registration Date/Time: 09/24/2016 Microscopic hematuria. Acute mild systolic, left ventricular congestive heart failure. Chest wall pain .12 lead EKG performed. Bacterial pneumonia with hypoxemia and sepsis. Vital signs recorded and reviewed; empiric antibiotics given in the ED. Sinus tachycardia. Moderate leukocytosis with bandemia. (Electronically signed by Dayton Dickey DO 09/24/2016 16:04)
[2016-09-24 16:05] VITALS: BP 147/77
[2016-09-24 17:15] VITALS: BP 116/67
[2016-09-24 18:20] VITALS: BP 113/69
[2016-09-24] MEDS ORDERED: METHOTREXA50 MG/2 ML SC (18:43)
[2016-09-24] MEDS ORDERED: DELTASONE20 MG PO (18:47)
--- NOTE | 2016-09-24 19:30 | NUR ---
PT ARRIVED TO UNIT VIA GURNEY AT 1600. SCOOTED OVER TO HOSPITAL BED. QUITE TACHYPNEIC AND TACHYCARDIC ON ARRIVAL. HR 145, RR 38, TEMP 103.1. PER ED RN, PT HAD JUST BEEN GIVEN TYLENOL PRIOR TO TRANSPORT. O2 SATS 92% ON 2L NC. INCREASED TO 4 LPM. PT NOTED TO BE DISORIENTED, PULLING AT LINES/TUBES. PROFUSELY DIAPHORETIC FOR SOME TIME AND TEMP NOW DOWN TO 99.7. MENTATION ALSO IMPROVING. PT FORGETFUL, NEEDS FREQUENT REMINDERS TO KEEP OXYGEN IN PLACE, BUT ORIENTED X3. URINE OUTPUT LOW, MONITORING HOURLY. REPORT AND CARE GIVEN TO SONIA GARRISON.
[2016-09-24 20:07] VITALS: BP 124/72
[2016-09-24 21:04] VITALS: BP 131/73
--- NOTE | 2016-09-24 21:11 | HISTORY AND PHYSICAL ---
ADMITTED: 09/24/2016 CHIEF COMPLAINT: 1. Fatigue 2. Tiredness 3. Confusion HISTORY OF PRESENT ILLNESS: This is a 50-year-old male with rheumatoid arthritis, on methotrexate and prednisone, presenting to the emergency department with complaints of fatigue, tiredness, and confusion. Apparently, the patient 3 days ago started having chills, cough, and nausea. Two days ago, he started having fevers and decreased appetite. Yesterday, he did go to work; however, he then immediately went home with severe fatigue, imbalance, and confusion. When this morning he was even more confused and started having slurred speech, his family took him to the emergency department. The patient denies significant shortness of breath. MEDICAL/SURGICAL HISTORY: Past medical history of rheumatoid arthritis, smoking history. He had a mouth biopsy a couple months ago that was benign. MEDICATIONS: 1. Methotrexate possibly 7 mg subcutaneous weekly. 2. Folic acid 5 mg p.o. daily. 3. Prednisone 20 mg p.o. daily. 4. Genentech 162 mg subcutaneous q.2 weeks. 5. Naproxen. 6. Aspirin 81 mg p.o. daily. ALLERGIES: 1. PENICILLIN CAUSES A RASH. SOCIAL HISTORY: The patient lives with his and niece. They do not have any pets. He smokes 3-4 cigarettes a day and did previously smoke more. He has been smoking for 30 years. He denies any drug use; however, he does drink 5-6 beers per day on 3 out of 7 days per week on the weekends. FAMILY HISTORY: Brother with esophageal cancer. He was a smoker. Mother, brothers, and sister with rheumatoid arthritis. REVIEW OF SYSTEMS: PHYSICAL EXAMINATION: VITAL SIGNS: Blood pressure is 147/77, pulse is 145, respiratory rate is 38-50, O2 saturation is 90% on 4 liters, T-max is 39.5 degrees Celsius. GENERAL: This is a sickly appearing male lying in bed with a slight increased work of breathing. He is pale and diaphoretic. HEENT: Pupils are equal, round, and reactive to light with accommodation bilaterally. Extraocular muscles are intact bilaterally. Oropharynx is tacky, but without exudates or erythema. NECK: Trachea is midline. There is no JVD. HEART: S1, S2. Mild tachycardia. No S3, S4, gallops, or rubs. LUNGS: Significantly diminished on the left side, but do have good air flow on the right side. ABDOMEN: Soft, nontender, nondistended without hepatosplenomegaly or masses. Bowel sounds are active. EXTREMITIES: There is no peripheral edema. LAB/IMAGING: Sodium is 130, potassium 4.1, chloride is 95, bicarbonate is 21, BUN of 18, creatinine 1.3, glucose of 120, magnesium of 1.9, calcium of 8.2. Total bilirubin 1.1, AST of 45, ALT of 25, total protein is 6.9, albumin of 2.3, alkaline phosphatase of 40. CPK of 201, troponin 0.1. White blood cell count of 14.6, hemoglobin of 14.6, hematocrit of 43.2, platelets of 219. D-dimer is 16. Sedimentation rate is 75. Procalcitonin of 2.6. Lactic acid of 1.6. BNP of 431. PH is 7.54, pCO2 of 23.9, and bicarbonate of 20.2. Urine toxicology is positive for benzodiazepines, but UA is negative. Chest x-ray shows a left upper and middle lobe pneumonia. IMPRESSION: This is a 50-year-old male who is immunocompromised secondary to his medications from his rheumatoid arthritis, presenting to the emergency department with fatigue, tiredness, fevers secondary to severe pneumonia with sepsis. The patient received azithromycin and Rocephin in the emergency department. PLAN: 1. Fluids, electrolytes, and nutrition: The patient will receive 3 liters of fluid within 3 hours. He is just finishing this now. We will continue intravenous fluids as indicated to keep urine output adequate. We will monitor his electrolytes closely. 2. Cardiac: Currently, he is hemodynamically stable; however, he is septic and we will monitor closely. 3. Respiratory: Pneumonia. Due to his immunocompromised state and meeting severe sepsis criteria, we will treat this patient with cefepime and levofloxacin in addition to albuterol nebulizers as indicated. 4. Endocrine: The patient is chronically on prednisone and, therefore, this does need to be continued as an inpatient. Monitor blood sugars closely. 5. Prophylaxis: We will do famotidine for gastrointestinal ulcer prophylaxis and Lovenox for deep venous thrombosis prophylaxis. 6. CODE STATUS: FULL CODE.
[2016-09-24 22:45] VITALS: BP 130/73
[2016-09-25] VITALS (8 sets, daily range): BP systolic 106–174; BP diastolic 68–105
--- NOTE | 2016-09-25 03:40 | NUR ---
patient has been running a fever all night, has been medicated with tylenol x3 with good relief, urine output has increased since admit, currently putting out 50-90ml/hr, increased coughing, encouraged is use and cough and deep breathe, no further confusion noted, speech still slurred, at bedside, will continue to monitor
--- NOTE | 2016-09-25 13:25 | DIAGNOSTIC IMAGING REPORT ---
PROCEDURE: XR CHEST 1 VIEW INDICATION: Tachycardia. Follow up pneumonia. TECHNIQUE: Portable AP view (1305 hours). COMPARISON: Compared to chest x-ray on 09/24/2016. FINDINGS: There is moderate worsening in severe left lung pneumonia. Right lung is clear. Heart and mediastinum are normal. Thorax is normal. IMPRESSION: 1. Moderate worsening in severe left lung pneumonia. 2. Findings discussed with Dr. Shannon Monroe.
--- NOTE | 2016-09-25 13:43 | Progress Note ---
Subjective General Patient feels slightly improved today. Still having slurred speech and slighly confused, but much improved. SOB and cough improved. Still withOUT appetite and fatigued. Physical Exam Vital Signs / I&Os Vital Signs Date Time Temp Pulse Resp B/P Pulse O2 O2 Flow FiO2 Ox Delivery Rate 09/25 1334 37.7 09/25 1156 38.7 09/25 1029 39.4 144 40 154/85 96 Nasal 4.0 Cannula 09/25 0854 Nasal 4.0 Cannula 09/25 0814 146 38 165/81 95 Nasal 4.0 Cannula 09/25 0700 37.1 127 32 132/84 94 Nasal 4.0 Cannula 09/25 0223 39.1 127 32 129/74 95 Nasal 4.0 Cannula 09/25 0009 37.1 09/24 2245 38.4 128 32 130/73 95 Nasal 4.0 Cannula 09/24 2210 39.4 09/24 2200 Nasal 4.0 Cannula 09/24 2104 131/73 09/24 2028 4.0 09/24 2007 37.5 124/72 09/24 1828 37.6 09/24 1820 119 34 113/69 96 Nasal 4.0 Cannula 09/24 1729 37.2 09/24 1715 118 116/67 96 Nasal 4.0 Cannula 09/24 1700 Nasal 4.0 Cannula 09/24 1626 50 09/24 1605 39.5 145 38 147/77 92 Nasal 4.0 Cannula 09/24 1400 4.0 I&O 09/25 0000 09/24 1600 09/24 0800 Intake Total 500 2700 Output Total 553 Balance -53 2700 General Appearance Alert, Cooperative, No acute distress Lungs Clear to ausculatation on the R, course diminished lung sounds with expiratory wheezing on L, worse in bases. Cardiovascular Normal S1 and S2, No murmurs, gallops, rubs, Tachycardia, regular rhythm. Abdomen Normal bowel sounds, Soft, No tenderness Extremities No edema Assessment and Plan Problem List 1. Pneumonia Plan Stable or slightly worse on x-ray (likely 2/2 IVF). Continue antibiotics. If not improved tomorrow, would add vanco . 2. Hypoxemia Plan Stable on O2. 3. Sepsis Plan Decrease in bicarb. Will give IVF bolus. 4. Tachycardia Plan Will give IVF.
--- NOTE | 2016-09-25 18:24 | NUR ---
PT HAD AN INCIDENT OF BECOMING INCREASINGLY SOB, CRACKLES PRESENT BILATERLY, VERY DIAPHORETIC, SATS DECREASED TO 88%. IV BOLUS DC'D, PT. PLACED ON OXYMASK, RT CALLED FOR TREATMENT, DR. CALDERON NOTIFIED. PT. MEDICATED AND IS NOW RESTING COMFORTABLY. STILL HAS NO APPETITE, EATING ONLY A FEW BITES. HAS BEEN UP TO BSC, PASSING GREEN, LIQUID STOOL. WAS UP TO CHAIR FOR SEVERAL HOURS THIS MORNING, ALEXANDRA. ACTIVITY WELL. NOW VISITING WITH FAMILY.
--- NOTE | 2016-09-25 21:16 | NUR ---
PATIENTS BS WAS 166, PATIENT EXPRESSED NOT WANTING TO TAKE INSULIN, MD CALLED NEW ORDERS RECIEVED, NO INSULIN GIVEN AT THIS TIME, WILL CONTINUE TO MONITOR
--- NOTE | 2016-09-25 21:33 | NUR ---
did complete assessment, patient diaphoretic, still has slurred and stuttered speech, otherwise negative neuro assessment, left lung diminished throughout with fine crackles in the upper left lobes, right lung mathias clear, slightly diminished in the bases, encouraged deep breathe and cough and is use, wiley in place draining adequate urine, will continue to moniotr
[2016-09-26] VITALS (12 sets, daily range): BP systolic 117–140; BP diastolic 73–94
--- NOTE | 2016-09-26 | NUR ---
Pt awake on arrival to room for assessment. Reports feeling slightly better. Is diaphoretic. Afebrile. Tachy 100-110. O2 5L NC sats in mid-high 90's. Denies pain. Breathing easy at rest. IV infusing. Singh w/adequate dark UOP. Hourly amounts right around 30-40 ml/hr.
--- NOTE | 2016-09-26 03:33 | NUR ---
0220 Pt found w/O2 off & had pulled out IV. Confused. Afebrile. HR is up to 115-120. Sats 97 on 5L. Difficult IV start. Both floor RNs attempted X2 & nsg sup called & able to get IV after 2 attempts. 0330 Med w/Tylenol. Monitoring HR. Will notify MD if does not lower after Tylenol. BP WNL. 121/77. UOP adequate, measuring hourly.
--- NOTE | 2016-09-26 06:06 | NUR ---
Pt noted be be hallucinating over last few hours. HR up to 120-122. Pt noted to have increased anterior L lung crackles. Labs back & reported C7 results & BNP increase to [address] Costello. Pt is tachynpeic low 30's. Order taken for stat Lasix 20mg IV & to decrease IVF rate to 75 cc/h. New order for Risperidal for hallucinations. Reported to Dr. Costello pt hx of ETOH 15-18 beers over 3 day weekend periods. Also reported he is diaphoretic, along w/all of above. Per Dr. Costello, [facility] [place] to call Dr. Gorman after 1-2hrs if no improvement in HR.
--- NOTE | 2016-09-26 06:41 | Progress Note ---
Subjective General This is a 50-year-old male who is immunocompromised secondary to his medications from his rheumatoid arthritis, presenting to the emergency department with fatigue, tiredness, fevers secondary to severe pneumonia with sepsis. The patient received azithromycin and Rocephin in the emergency department. Has been on abx since- levoquin and cefopime. Per nursing staff he has been with tachycardia that has continued, increased rales, elevated bnp and lots of hallucinations. He didn't sleep at all last night. This am he is sitting up in bed pleasantly confused and talkative, cooperative. Physical Exam Vital Signs / I&Os Vital Signs Date Time Temp Pulse Resp B/P Pulse O2 O2 Flow FiO2 Ox Delivery Rate 09/26 0558 98.4 122 30 134/83 96 Nasal 5.0 Cannula 09/26 0539 5.0 09/26 0232 98.1 115 30 121/77 95 Nasal Cannula 09/26 0026 Nasal 5.0 Cannula 09/25 2235 97.5 106 28 122/76 94 Nasal 5.0 Cannula 09/25 2018 5.0 09/25 1828 98.1 115 28 106/68 95 Nasal 5.0 Cannula 09/25 1722 5.0 09/25 1709 145 32 137/80 94 5.0 09/25 1641 100.9 162 174/105 09/25 1547 4.0 09/25 1334 99.9 09/25 1156 101.7 09/25 1029 102.9 144 40 154/85 96 Nasal 4.0 Cannula 09/25 0854 Nasal 4.0 Cannula 09/25 0814 146 38 165/81 95 Nasal 4.0 Cannula 09/25 0800 4.0 09/25 0700 98.8 127 32 132/84 94 Nasal 4.0 Cannula I&O 09/26 0000 09/25 1600 09/25 0800 Intake Total 200 2025 480 Output Total 470 405 500 Balance -270 1620 -20 General Appearance Alert, Cooperative HEENT Normal exam Lungs coarse breath sounds bilaterally decreased on the L Cardiovascular Regular rate and rhythm Abdomen Soft, No tenderness Extremities No edema LAB Results Laboratory Tests 09/26 09/26 0430 0430 Chemistry Plasma Sodium (136 - 145 mmol/L) 134 Plasma Potassium (3.5 - 5.1 mmol/L) 3.7 Plasma Chloride (98 - 107 mmol/L) 104 CO2 (Enzymatic) (21 - 32 mmol/L) 18 BUN (7 - 18 mg/dL) 22 Creatinine (0.6 - 1.3 mg/dL) 1.1 Est GFR ( Amer) (mL/min) >60 Est GFR (Non-Af Amer) (mL/min) >60 Glucose (70 - 110 mg/dL) 114 Plasma Calcium (8.5 - 10.1 mg/dL) 7.6 B-Natriuretic Peptide (5 - 100 pg/ml) 1280 Hematology WBC (4.5 - 11.5 K/uL) 9.2 RBC (4.50 - 5.90 M/uL) 3.69 Hgb (13.5 - 17.5 gm/dL) 11.6 Hct (41.0 - 53.0 %) 35.2 MCV (80 - 100 fL) 95 MCH (26 - 34 pg) 32 RDW (11.6 - 14.8 %) 18.9 Neut % (Auto) (50 - 75 %) 78 Lymph % (Auto) (25 - 40 %) 5 Coleman % (Auto) (3 - 14 %) 2 Eos % (Auto) (0 - 4 %) 0 Baso % (Auto) (0 - 2 %) 0 Band Neutrophils % (0 - 8 %) 15 Metamyelocytes % (0 - 1 %) 0 Myelocytes (0 - 1 %) 0 Other Cell Type 0 Plt Count, EDTA (150 - 400 K/uL) 128 PUBS MCHC (31 - 37 g/dL) 33 Assessment and Plan Problem List 1. Pneumonia Plan On abx with white out of lung 2. Hypoxemia Plan Has had some elevation in bnp and ? rales on exam. Could be some chf with the pneumonia 3. Sepsis Plan Has sepsis and immune compramise with the RA. Will continue with aggressive treatment with abx. 4. Tachycardia Plan Will change from albuterol to xopenex. Try slowing heart a little to help with pumping with use of coreg. 5. Hallucination Plan Has hallucinations likely multi factorial with his illness. Will try a low dose of risperidol and see how he does. Re check on bmp,bnp 12:00pm today
--- NOTE | 2016-09-26 07:47 | NUR ---
Dr. Costello was here to see pt. He ordered Carvedilol PO for HR. This was given. Pt was up to BSC to have loose BM. Has already had good UOP after Lasix. BP stable & MD aware. t/c to re: pt status w/hallucinations. She will come to sit w/him. Asked her if pt drinks daily & she says no, he only drinks on weekend. Dr. Costello does not believe this is ETOH, but rather due to infectious process.
--- NOTE | 2016-09-26 08:14 | Progress Note ---
Medications and Allergies Allergies Coded Allergies: Penicillins (Severe, RASH, TROUBLE SWALLOWING 09/25/16) Physical Exam Vital Signs / I&Os Vital Signs Date Time Temp Pulse Resp B/P Pulse O2 O2 Flow FiO2 Ox Delivery Rate 09/26 0719 5.0 09/26 0705 125 09/26 0648 124 140/78 09/26 0558 98.4 122 30 134/83 96 Nasal 5.0 Cannula 09/26 0539 5.0 09/26 0232 98.1 115 30 121/77 95 Nasal Cannula 09/26 0026 Nasal 5.0 Cannula 09/25 2235 97.5 106 28 122/76 94 Nasal 5.0 Cannula 09/25 2018 5.0 09/25 1828 98.1 115 28 106/68 95 Nasal 5.0 Cannula 09/25 1722 5.0 09/25 1709 145 32 137/80 94 5.0 09/25 1641 100.9 162 174/105 09/25 1547 4.0 09/25 1334 99.9 09/25 1156 101.7 09/25 1029 102.9 144 40 154/85 96 Nasal 4.0 Cannula 09/25 0854 Nasal 4.0 Cannula 09/25 0814 146 38 165/81 95 Nasal 4.0 Cannula I&O 09/26 0000 09/25 1600 09/25 0800 Intake Total 200 2025 480 Output Total 470 405 500 Balance -270 1620 -20 LAB Results Laboratory Tests 09/26 09/26 0430 0430 Chemistry Plasma Sodium (136 - 145 mmol/L) 134 Plasma Potassium (3.5 - 5.1 mmol/L) 3.7 Plasma Chloride (98 - 107 mmol/L) 104 CO2 (Enzymatic) (21 - 32 mmol/L) 18 BUN (7 - 18 mg/dL) 22 Creatinine (0.6 - 1.3 mg/dL) 1.1 Est GFR ( Amer) (mL/min) >60 Est GFR (Non-Af Amer) (mL/min) >60 Glucose (70 - 110 mg/dL) 114 Plasma Calcium (8.5 - 10.1 mg/dL) 7.6 B-Natriuretic Peptide (5 - 100 pg/ml) 1280 Hematology WBC (4.5 - 11.5 K/uL) 9.2 RBC (4.50 - 5.90 M/uL) 3.69 Hgb (13.5 - 17.5 gm/dL) 11.6 Hct (41.0 - 53.0 %) 35.2 MCV (80 - 100 fL) 95 MCH (26 - 34 pg) 32 RDW (11.6 - 14.8 %) 18.9 Neut % (Auto) (50 - 75 %) 78 Lymph % (Auto) (25 - 40 %) 5 Swisher % (Auto) (3 - 14 %) 2 Eos % (Auto) (0 - 4 %) 0 Baso % (Auto) (0 - 2 %) 0 Band Neutrophils % (0 - 8 %) 15 Metamyelocytes % (0 - 1 %) 0 Myelocytes (0 - 1 %) 0 Other Cell Type 0 Plt Count, EDTA (150 - 400 K/uL) 128 PUBS MCHC (31 - 37 g/dL) 33 Swisher % (Auto) (3 - 14 %) 2 Eos % (Auto) (0 - 4 %) 0 Baso % (Auto) (0 - 2 %) 0 Band Neutrophils % (0 - 8 %) 15 Metamyelocytes % (0 - 1 %) 0 Myelocytes (0 - 1 %) 0 Other Cell Type 0 Plt Count, EDTA (150 - 400 K/uL) 128 PUBS MCHC (31 - 37 g/dL) 33 Assessment and Plan Problem List 1. Pneumonia 2. Tachycardia 3. Sepsis 4. Hallucination Plan Current status: [current status] Anticipated discharge date: [discharge date] Anticipated discharge placement: [Home] Patient care time: Time spent in chart review, patient interview, physical exam, CPOE, and care documentation: [ ] minutes Visit to patient today: [ ] Complexity of care: [ ] E&M Codes Critical Care: 30-74 min/25105
--- NOTE | 2016-09-26 08:48 | NUR ---
Patient slightly agitated at this time. at bedside. Ativan 2 mg given IV for agitation/restlessness. Tele sinus tachycardia noted HR 140's. Metoprolol 5 mg given IV. HR down to 120's after metoprolol given. MD aware. Patient denies generalized pain and chest pain. BP stable. Temp 99.4. Patient hallucinating at times. Patient changed to CCU status. IV RH patent 75cc/hr. Patient instructed to cough and deep breath. SOB noted with exertion. Continues to be tachynpeic 30's. 5L NC sats 98%. Good urine output noted in wiley. Lasix given at 0601. No complaints at this time. Will continue to monitor.
--- NOTE | 2016-09-26 09:48 | NUR ---
Patient in bed resting with eyes closed. Patient hallucinating and calling out a times. Patient grinding teeth and clenching jaw. Ativan slightly effective. HR continues to be 120's. MD aware. IV RH patent 75cc/hr. Ultrasound in doing Echo at this time. No complaints at this time. Will continue to monitor.
--- NOTE | 2016-09-26 10:47 | NUR ---
Patient given tylenol 650 mg PO at 1033 and ibuprofen 600 mg PO at 1047 for temp of 103.4. Family at bedside. No complaints at this time. Will continue to monitor.
--- NOTE | 2016-09-26 11:03 | NUR ---
Vancomycin dosing per pharmacy Treating pneumonia not improving on Levofloxacin and Cefepime, WBC 9.2, bands 15; pt on immunotherapy for RA; CRESP - pending, BNP 1280, max temp 103.2 axillary. Target trough 15-20 mcg/ml Intial dose Vancomycin 2000 mg IV this am to be followed by 1500 mg IV q12h. Measuring trough level 09/28 1130 - prior to 1200 dose (5th dose). Pharmacist will follow
--- NOTE | 2016-09-26 12:43 | NUR ---
Patient slightly agitated and continues to hallucinate. Ativan 2 mg given IV. Patient continues to have elevated HR 130's. Metoprolol 5 mg IV. Family at bedside. No other complaints at this time. Will continue to monitor.
--- NOTE | 2016-09-26 13:09 | DIAGNOSTIC IMAGING REPORT ---
REFERRING PHYSICIAN/PROVIDER: Gideon Gorman MD CONSULTING EXPLOSIVE ORDNANCE HANDLER: Anton Pinedo Jr MD PROCEDURE: M-mode 2D echocardiography with spectral and color flow Doppler TECHNICAL QUALITY: The study quality was technically difficult. INDICATION: chf RHYTHM DURING PROCEDURE: The patient was in sinus tachycardia with heart rates between 130-135 beats per minute during the exam. INTERPRETATIONS: LEFT VENTRICLE: The left ventricle is at the upper limits of normal. There is mild concentric left ventricular hypertrophy. Left ventricular systolic function is moderate to severely reduced. LV ejection fraction is estimated to be 25 plus or minus 5%. There is moderate to severe global hypokinesis of the left ventricle. Diastolic function could not be accurately assessed due to tachycardia. RIGHT VENTRICLE: The right ventricle is normal in size and function. The right ventricular systolic pressure could not be accurately assessed on today's study. ATRIA: The left atrium is mildly dilated. The right atrial size is normal. The interatrial septum cannot be accurately assessed. MITRAL VALVE: The mitral valve is normal. There is evidence for either redundant elongated chordae versus ruptured chordae but there is no evidence of significant mitral valve disease. There is at most mild mitral regurgitation. AORTIC VALVE: The aortic valve is not well visualized. Aortic valve opens well. There appears to be most likely severe aortic regurgitation. There is an eccentric jet of aortic insufficiency directed against the anterior mitral leaflet. There is moderate holodiastolic flow reversal and the proximal abdominal aorta and the descending thoracic aorta. TRICUSPID VALVE: The tricuspid valve leaflets are thin and pliable. There is mild tricuspid regurgitation. PULMONIC VALVE: The pulmonic valve is not well visualized but there is trace or physiologic amount of pulmonic regurgitation. GREAT VESSELS: The aorta root is normal size. The ascending aorta is mild to moderately enlarged at 4.05 cm. The IVC is dilated and collapses less than 50% with the sniff. This suggests a high right atrial pressure of 15 mmHg. PERICARDIUM: The pericardium was difficult to see but appear to be grossly normal. IMPRESSION: 1. There is significantly reduced LV systolic function with an EF 125 plus or minus 5% with significant global hypokinesis. Diastolic function could not be accurately assessed due to tachycardia. 2. The right ventricle is normal in size and function. 3. The aortic valve is not well visualized but it opens well. There appears to be most likely severe aortic regurgitation. There is an eccentric jet of aortic insufficiency directed against the anterior mitral leaflet. There is holodiastolic reversal of flow within both the thoracic aorta and abdominal aorta suggestive of significant aortic regurgitation. 4. There is evidence for either redundant elongated chordae versus ruptured chordae but there is no flow mitral leaflet. There is mild mitral regurgitation. 5. Suggest an urgent inpatient cardiology consultation to see a of aortic valve intervention is necessary.
--- NOTE | 2016-09-26 13:43 | NUR ---
Patient resting with eyes closed. Ativan effective. Tele sinus tachycardia HR 110. Metoprolol effective. at bedside. Will continue to monitor.
--- NOTE | 2016-09-26 14:37 | Discharge Summary ---
Discharge Summary Report Admit Date 09/24/16 Discharge Date 09/26/16 Admission Diagnosis 1. Hjmfwcjru-uttt-pbdsz 2. Rheumatoid arthritis 3. Sepsis Discharge Diagnosis 1. Qbibqbsyv-roqs-czitj 2. Rheumatoid arthritis 3. Sepsis 4. Alcohol abuse 5. Mental status changes 6. CHF-severe aortic regurgitation Brief History The patient is a 50-year-old white male with a significant past medical history of rheumatoid arthritis on chronic methotrexate/steroid therapy, tobacco use disorder-smoking, alcohol abuse, who presented to [facility] emergency department on the day of admission secondary to complaints of fatigue, confusion, cough fever and chills. Evaluation at that time was consistent with left-sided pneumonia/sepsis. Secondary to the above, the patient was admitted by Shannon Monroe M.D. for further evaluation and treatment. For other history present illness, past medical history, family history, social history, review of systems, and admission physical examination please see the patient's history and physical examination and ER visit note in the patient's medical record. Hospital Course The following problems and their management were noted during the patient's hospitalization: 1. Cotsljzlm-ifkh-sxgnl The patient was admitted with findings of left-sided pneumonia. This was extensive without findings of necrosis on thoracic CTA. The patient was treated with Levaquin, cefepime, and vancomycin. Sputum Gram stain/C&S pending at the time of this dictation. Blood cultures negative 2. The patient had persistent fevers throughout his hospitalization. Vancomycin was added on the day of the patient's discharge. CBC showed normal white count with left shift. Procalcitonin was significantly elevated on admission and remained elevated on the day of discharge at 60.6. Secondary to the patient's persistent pneumonia with other medical problems it was felt the patient would best be 0 by transfer to [facility]. The case was discussed with cardiology at [facility], cardiology at [facility], and finally with ICU attending Dr. Lake Egan. It was felt the patient was appropriate for transfer for enhanced medical care. COBRA form completed. Risk and benefits of transfer were discussed with the patient's spouse who is in agreement with transfer. Accepting physician Dr. Lake Egan. 2. Rheumatoid arthritis The patient has a history of rheumatoid arthritis treated with methotrexate and prednisone. He was placed on stress dose hydrocortisone 100 mg IV every 8 hours. He was transferred on this dosage schedule. No further evaluation of his rheumatoid arthritis was undertaken during the patient's hospitalization. 3. Sepsis The patient was admitted with findings suggestive of SIRS. He received vigorous IV fluid support and antimicrobials. Blood pressure was stable early on the patient's course and remained so throughout the patient's hospitalization. He was treated with Levaquin, cefepime, and vancomycin on discharge. Follow-up with Dr. Egan [facility]. 4. Alcohol abuse The patient has a history of binge drinking. He was noted to have mental status changes during his hospital stay. These were in the setting of significantly elevated temperature of 103. It is possible that the patient's current mental status represents early alcohol withdrawal syndrome. This was discussed with Dr. Egan. The patient did receive Ativan 2 mg IV prior to transfer. Follow-up with Dr. Egan with initiation of alcohol withdrawal protocol thiamine/ multivitamin therapy. 5. Mental status changes See above. No CT scan was performed. Patient exhibited no nuchal rigidity. Further evaluation per Dr. Egan. 6. CHF-severe aortic regurgitation The patient was noted to have findings of tachycardia with associated elevated BNP/hypoxemia. Secondary to the above the patient underwent echocardiogram. This showed global hypokinesis with estimated left ventricular ejection fraction 25% plus or -5%. 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 It was recommended patient undergo cardiology evaluation/cardiac surgery evaluation for possible need for aortic valve replacement. No signs of valvular vegetations/endocarditis on transthoracic echocardiogram. This was discussed with Dr. Egan and ( cardiology) was [facility]. It was felt the patient will be appropriate candidate for transfer with follow-up evaluation at this time. Lab/Imaging Laboratory Tests 09/26 09/26 09/26 09/26 09/26 1120 1120 1120 [id number] Blood Gas Sample Site LR Total CO2 (24.0 - 30.0 mmol/L) 21.3 ABG pH (7.35 - 7.45) 7.45 ABG pCO2 at Pt Temp (35 - 45 mmHg) 29.4 ABG pO2 at Pt Temp (80.0 - 100.0 mmHg) 33.6 ABG HCO3 (20.0 - 26.0 mmol/L) 20.4 ABG O2 Sat Calc/Amie (95.1 - 100.0 %) 66.2 ABG Base Excess (-6.0 - -6.0 mmol/L) -3.1 ABG Reduced Hgb (%) 33.3 ABG Carboxyhemoglobin (0.5 - 1.5 %) 1.3 ABG Methemoglobin (0.4 - 1.5 %) 0.2 Eder Test YES Other Total Hgb (14.0 - 18.0 g/dL) 12.6 A-a O2 Gradient (7.0 - 14.0 mmHg) 148.9 Hgb O2 Saturation (95.0 - 100.0 %) 65.2 Temperature (C) 37 Respiration Rate (/MIN) 16 O2 Liters/Min (0 - 20 L/MIN) 4 Vent Mode NC FiO2 (20 - 101 %) 30 Chemistry Plasma Sodium (136 - 145 mmol/L) 135 134 Plasma Potassium (3.5 - 5.1 mmol/L) 4.2 3.7 Plasma Chloride (98 - 107 mmol/L) 105 104 CO2 (Enzymatic) (21 - 32 mmol/L) 19 18 BUN (7 - 18 mg/dL) 22 22 Creatinine (0.6 - 1.3 mg/dL) 1.0 1.1 Est GFR ( Amer) (mL/min) >60 >60 Est GFR (Non-Af Amer) (mL/min) >60 >60 Glucose (70 - 110 mg/dL) 92 114 Plasma Calcium (8.5 - 10.1 mg/dL) 7.8 7.6 B-Natriuretic Peptide (5 - 100 pg/ml) 1290 Procalcitonin (0 - 0.5 ng/mL) 60.6 09/26 0430 Chemistry B-Natriuretic Peptide (5 - 100 pg/ml) 1280 Hematology WBC (4.5 - 11.5 K/uL) 9.2 RBC (4.50 - 5.90 M/uL) 3.69 Hgb (13.5 - 17.5 gm/dL) 11.6 Hct (41.0 - 53.0 %) 35.2 MCV (80 - 100 fL) 95 MCH (26 - 34 pg) 32 RDW (11.6 - 14.8 %) 18.9 Neut % (Auto) (50 - 75 %) 78 Lymph % (Auto) (25 - 40 %) 5 [place] % (Auto) (3 - 14 %) 2 Eos % (Auto) (0 - 4 %) 0 Baso % (Auto) (0 - 2 %) 0 Band Neutrophils % (0 - 8 %) 15 Metamyelocytes % (0 - 1 %) 0 Myelocytes (0 - 1 %) 0 Other Cell Type 0 Plt Count, EDTA (150 - 400 K/uL) 128 PUBS MCHC (31 - 37 g/dL) 33 Microbiology Date/Time Procedure - Status Source Growth 09/26 1307 Respiratory Culture - RECD SPUTUM 09/26 1307 Culture and Gram Stain - RECD SPUTUM Discharge Instructions/Meds For other recommendations regarding discharge diet, activity, followup, and discharge medications please see the patient's discharge instructions. Discharge condition: Critical, unstable--patient felt stable enough for ambulance transfer to [facility]. Greater than 30 min. was spent in the patient's discharge preparation including discharge interview and physical examination, progress note, discharge instructions, and discharge summary 85 minutes was spent in critical care time in chart review, radiology review, family discussion, physical examination, consultation with cardiology and ICU attending, CPOE, documentation preparation, and preparation for discharge. The patient was interviewed and examined on the day of discharge. E&M Codes Critical Care: 30-74 min/97366, Each add'l 30 min/69877
--- NOTE | 2016-09-26 14:37 | Discharge Summary ---
Discharge Summary Report Admit Date 09/24/16 Discharge Date 09/26/16 Admission Diagnosis 1. Xevphofje-pukq-bpijx 2. Rheumatoid arthritis 3. Sepsis Discharge Diagnosis 1. Vvvdojqwu-lkyt-apudx 2. Rheumatoid arthritis 3. Sepsis 4. Alcohol abuse 5. Mental status changes 6. CHF-severe aortic regurgitation Brief History The patient is a 50-year-old white male with a significant past medical history of rheumatoid arthritis on chronic methotrexate/steroid therapy, tobacco use disorder-smoking, alcohol abuse, who presented to [facility] emergency department on the day of admission secondary to complaints of fatigue, confusion, cough fever and chills. Evaluation at that time was consistent with left-sided pneumonia/sepsis. Secondary to the above, the patient was admitted by Shannon Monroe M.D. for further evaluation and treatment. For other history present illness, past medical history, family history, social history, review of systems, and admission physical examination please see the patient's history and physical examination and ER visit note in the patient's medical record. Hospital Course The following problems and their management were noted during the patient's hospitalization: 1. Dboqajsma-srff-bzmqt The patient was admitted with findings of left-sided pneumonia. This was extensive without findings of necrosis on thoracic CTA. The patient was treated with Levaquin, cefepime, and vancomycin. Sputum Gram stain/C&S pending at the time of this dictation. Blood cultures negative 2. The patient had persistent fevers throughout his hospitalization. Vancomycin was added on the day of the patient's discharge. CBC showed normal white count with left shift. Procalcitonin was significantly elevated on admission and remained elevated on the day of discharge at 60.6. Secondary to the patient's persistent pneumonia with other medical problems it was felt the patient would best be 0 by transfer to [facility]. The case was discussed with cardiology at [facility], cardiology at [facility], and finally with ICU attending Dr. Lake Egan. It was felt the patient was appropriate for transfer for enhanced medical care. COBRA form completed. Risk and benefits of transfer were discussed with the patient's spouse who is in agreement with transfer. Accepting physician Dr. Lake Egan. 2. Rheumatoid arthritis The patient has a history of rheumatoid arthritis treated with methotrexate and prednisone. He was placed on stress dose hydrocortisone 100 mg IV every 8 hours. He was transferred on this dosage schedule. No further evaluation of his rheumatoid arthritis was undertaken during the patient's hospitalization. 3. Sepsis The patient was admitted with findings suggestive of SIRS. He received vigorous IV fluid support and antimicrobials. Blood pressure was stable early on the patient's course and remained so throughout the patient's hospitalization. He was treated with Levaquin, cefepime, and vancomycin on discharge. Follow-up with Dr. Egan [facility]. 4. Alcohol abuse The patient has a history of binge drinking. He was noted to have mental status changes during his hospital stay. These were in the setting of significantly elevated temperature of 103. It is possible that the patient's current mental status represents early alcohol withdrawal syndrome. This was discussed with Dr. Egan. The patient did receive Ativan 2 mg IV prior to transfer. Follow-up with Dr. Egan with initiation of alcohol withdrawal protocol thiamine/ multivitamin therapy. 5. Mental status changes See above. No CT scan was performed. Patient exhibited no nuchal rigidity. Further evaluation per Dr. Egan. 6. CHF-severe aortic regurgitation The patient was noted to have findings of tachycardia with associated elevated BNP/hypoxemia. Secondary to the above the patient underwent echocardiogram. This showed global hypokinesis with estimated left ventricular ejection fraction 25% plus or -5%. 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 It was recommended patient undergo cardiology evaluation/cardiac surgery evaluation for possible need for aortic valve replacement. No signs of valvular vegetations/endocarditis on transthoracic echocardiogram. This was discussed with Dr. Egan and ( cardiology) was [facility]. It was felt the patient will be appropriate candidate for transfer with follow-up evaluation at this time. Lab/Imaging Laboratory Tests 09/26 09/26 09/26 09/26 09/26 1120 1120 1120 [id number] Blood Gas Sample Site LR Total CO2 (24.0 - 30.0 mmol/L) 21.3 ABG pH (7.35 - 7.45) 7.45 ABG pCO2 at Pt Temp (35 - 45 mmHg) 29.4 ABG pO2 at Pt Temp (80.0 - 100.0 mmHg) 33.6 ABG HCO3 (20.0 - 26.0 mmol/L) 20.4 ABG O2 Sat Calc/Amie (95.1 - 100.0 %) 66.2 ABG Base Excess (-6.0 - -6.0 mmol/L) -3.1 ABG Reduced Hgb (%) 33.3 ABG Carboxyhemoglobin (0.5 - 1.5 %) 1.3 ABG Methemoglobin (0.4 - 1.5 %) 0.2 Eder Test YES Other Total Hgb (14.0 - 18.0 g/dL) 12.6 A-a O2 Gradient (7.0 - 14.0 mmHg) 148.9 Hgb O2 Saturation (95.0 - 100.0 %) 65.2 Temperature (C) 37 Respiration Rate (/MIN) 16 O2 Liters/Min (0 - 20 L/MIN) 4 Vent Mode NC FiO2 (20 - 101 %) 30 Chemistry Plasma Sodium (136 - 145 mmol/L) 135 134 Plasma Potassium (3.5 - 5.1 mmol/L) 4.2 3.7 Plasma Chloride (98 - 107 mmol/L) 105 104 CO2 (Enzymatic) (21 - 32 mmol/L) 19 18 BUN (7 - 18 mg/dL) 22 22 Creatinine (0.6 - 1.3 mg/dL) 1.0 1.1 Est GFR ( Amer) (mL/min) >60 >60 Est GFR (Non-Af Amer) (mL/min) >60 >60 Glucose (70 - 110 mg/dL) 92 114 Plasma Calcium (8.5 - 10.1 mg/dL) 7.8 7.6 B-Natriuretic Peptide (5 - 100 pg/ml) 1290 Procalcitonin (0 - 0.5 ng/mL) 60.6 09/26 0430 Chemistry B-Natriuretic Peptide (5 - 100 pg/ml) 1280 Hematology WBC (4.5 - 11.5 K/uL) 9.2 RBC (4.50 - 5.90 M/uL) 3.69 Hgb (13.5 - 17.5 gm/dL) 11.6 Hct (41.0 - 53.0 %) 35.2 MCV (80 - 100 fL) 95 MCH (26 - 34 pg) 32 RDW (11.6 - 14.8 %) 18.9 Neut % (Auto) (50 - 75 %) 78 Lymph % (Auto) (25 - 40 %) 5 [place] % (Auto) (3 - 14 %) 2 Eos % (Auto) (0 - 4 %) 0 Baso % (Auto) (0 - 2 %) 0 Band Neutrophils % (0 - 8 %) 15 Metamyelocytes % (0 - 1 %) 0 Myelocytes (0 - 1 %) 0 Other Cell Type 0 Plt Count, EDTA (150 - 400 K/uL) 128 PUBS MCHC (31 - 37 g/dL) 33 Microbiology Date/Time Procedure - Status Source Growth 09/26 1307 Respiratory Culture - RECD SPUTUM 09/26 1307 Culture and Gram Stain - RECD SPUTUM Discharge Instructions/Meds For other recommendations regarding discharge diet, activity, followup, and discharge medications please see the patient's discharge instructions. Discharge condition: Critical, unstable--patient felt stable enough for ambulance transfer to [facility]. Greater than 30 min. was spent in the patient's discharge preparation including discharge interview and physical examination, progress note, discharge instructions, and discharge summary 85 minutes was spent in critical care time in chart review, radiology review, family discussion, physical examination, consultation with cardiology and ICU attending, CPOE, documentation preparation, and preparation for discharge. The patient was interviewed and examined on the day of discharge. E&M Codes Critical Care: 30-74 min/34506, Each add'l 30 min/51409
--- NOTE | 2016-09-26 14:42 | Provider's Discharge Care Plan ---
Problem, Goal, Plan Problem List 1. Pneumonia Goals: Improve disease control, Improved health/wellness, Prevent disease progress Instructions: Follow up as directed, Transfer to [facility] for further evaluation. Attending physician Lake Egan M.D. 2. CHF (congestive heart failure) Goals: Improve disease control, Improve function, Prevent disease progress Instructions: Follow up as directed, Transfer to [facility] for further evaluation by cardiology/cardiothoracic surgery.
--- NOTE | 2016-09-26 14:42 | Provider's Discharge Care Plan ---
Problem, Goal, Plan Problem List 1. Pneumonia Goals: Improve disease control, Improved health/wellness, Prevent disease progress Instructions: Follow up as directed, Transfer to [facility] for further evaluation. Attending physician Lake Egan M.D. 2. CHF (congestive heart failure) Goals: Improve disease control, Improve function, Prevent disease progress Instructions: Follow up as directed, Transfer to [facility] for further evaluation by cardiology/cardiothoracic surgery.
--- NOTE | 2016-09-26 16:41 | NUR ---
Patient resting at this time with eyes closed. at bedside. Tele NSR HR 90. Patient will be transfering to [facility] ICU. No complaints at this time. Will continue to monitor.
--- NOTE | 2016-09-26 18:23 | NUR ---
Patient transfered to [facility] by ambulance. Report given to ambulance RN. Transfer packet sent with patient. will be riding in ambulance with patient. Report will be called to Ashley RN.
--- NOTE | 2016-09-26 18:45 | NUR ---
Report given to Jaylon Coffey. No questions or concerns expressed.
== END 2016-09-26 18:25 | disposition short-term general hospital (02) | DRG 871 ==
LOC: ED SRH 12:31 → TRANS SRH 14:32 → CC SRH 15:48
PROVIDERS: ADMIT Emergency Medicine
DX: A41.9 Sepsis, unspecified organism (principal); J18.9 Pneumonia, unspecified organism; I50.21 Acute systolic (congestive) heart failure; R09.02 Hypoxemia; I35.1 Nonrheumatic aortic (valve) insufficiency; M06.9 Rheumatoid arthritis, unspecified; Z79.52 Long term (current) use of systemic steroids; F10.10 Alcohol abuse, uncomplicated
CPT/HCPCS: 83475; 90004; 90047; 90065; 90074; 90098; 90100; 90127; 90309; 90469; 90616; 91320; 91400; 91556; 91643; 91672; 92031; 92132; 92610; 92720; 92760; 92761; 92762; 92763; 92764; 92765; 92766; 92767; 93004; 94060; 95059; 95150